=== PATIENT | female | born 1990 | race African-American/Black ===

== ENCOUNTER 2016-03-26 08:18 | Emergency (ER) | payer MEDICAID ==
[2016-03-26] MEDS ORDERED: IPRATROPIUM/ALBUTEROL 0.5-2.5 MG/3 ML AMPUL NEB ONE (09:22)
--- NOTE | 2016-03-26 09:25 | ER Document Report ---
ED General - General Chief Complaint: Flu Symptoms Stated Complaint: COUGH/CONGESTION Time seen by provider: 09:23 Mode of Arrival: Ambulatory Information source: Patient Notes: As is a 26-year-old female who is 26 weeks who presents to the emergency room with productive cough (yellow sputum), sinus congestion, sore throat. Patient states his symptoms of been going on for the last month. Patient denies fever. She does report body aches. Patient has been seen by her OB doctor ([facility]) and she is been treated with amoxicillin and Flonase without any effect. TRAVEL OUTSIDE OF THE [place] IN LAST 30 DAYS: No - HPI Onset: Other - Past month Onset/Duration: Gradual Quality of pain: Achy Severity: None Pain Level: Denies Associated symptoms: Productive cough. denies: Chills, Diarrhea, Fever, Nausea , Vomiting, Shortness of breath Exacerbated by: Denies Relieved by: Denies Similar symptoms previously: Yes Recently seen / treated by doctor: Yes - Related Data Allergies/Adverse Reactions: nitrofurantoin [From Macrobid] Allergy (Mild, Verified 03/26/16 08:28) Hives nitrofurantoin macrocrystalline [From Macrobid] Allergy (Mild, Verified 08:28) Hives Past Medical History - General Information source: Patient - Social History Smoking Status: Never Smoker Cigarette use (# per day): No Chew tobacco use (# tins/day): No Smoking Education Provided: No Frequency of alcohol use: None Drug Abuse: None Lives with: Family Family History: DM, Hypertension, Other - Sister has a history of fibroids that required hysterectomy Patient has suicidal ideation: No Patient has homicidal ideation: No - Medical History Medical History: Negative Renal/ Medical History: Reports: Hx Ovarian Cysts. Denies: Hx Peritoneal Dialysis Psychiatric Medical History: Reports: Hx Bipolar Disorder, Hx Depression, Hx Post Traumatic Stress Disorder Surgical Hx: Negative - Immunizations Immunizations up to date: Yes Hx Diphtheria, Pertussis, Tetanus Vaccination: Yes Review of Systems - Review of Systems Constitutional: denies: Chills, Fever EENT: See HPI Cardiovascular: No symptoms reported Respiratory: No symptoms reported Gastrointestinal: No symptoms reported Genitourinary: No symptoms reported Female Genitourinary: No symptoms reported Musculoskeletal: No symptoms reported Skin: No symptoms reported Hematologic/Lymphatic: No symptoms reported Neurological/Psychological: No symptoms reported Physical Exam - Vital signs Vitals: Temp Pulse Resp BP Pulse Ox 97.6 F 108 H 18 110/66 99 03/26/16 08:24 03/26/16 08:24 03/26/16 08:24 03/26/16 08:24 03/26/16 08:24 Notes: Physical exam: GENERAL: 26-year-old female, alert and oriented 3, no acute distress. HEAD: Atraumatic, normocephalic. EYES: Pupils equal round and reactive to light, extraocular movements intact, sclera anicteric, conjunctiva are normal. ENT: TMs normal, maxillary sinus congestion, nares patent, oropharynx mildly erythematous without exudates. Moist mucous membranes. NECK: Normal range of motion, supple without lymphadenopathy or JVD. LUNGS: Scant wheezes bilaterally HEART: Regular rate and rhythm without murmurs, rubs or gallops. ABDOMEN: Soft, nontender, normoactive bowel sounds. No guarding, no rebound. No masses appreciated. EXTREMITIES: Normal range of motion, no pitting or edema. No clubbing or cyanosis. NEUROLOGICAL: Cranial nerves II through XII grossly intact. Normal speech, normal gait. PSYCH: Normal mood, normal affect. SKIN: Warm, Dry, normal turgor, no rashes or lesions noted. Course - Re-evaluation Re-evalutation: 03/26/16 11:58 Patient states that the coughing is improved after nebulizer and repeat lung exam does appear to have better airway excursion. I will send her home with an albuterol inhaler as well as a Medrol Dosepak and saline nasal spray. 03/26/16 11:58 - Vital Signs Vital signs: Temp Pulse Resp BP Pulse Ox 97.6 F 108 H 18 110/66 99 03/26/16 08:24 03/26/16 08:24 03/26/16 08:24 03/26/16 08:24 03/26/16 08:24 Discharge - Discharge Clinical Impression: acute viral syndrome, bronchitis with bronchospasm Condition: Stable Disposition: HOME, SELF-CARE Instructions: Acetaminophen Additional Instructions: Recommendations: Your symptoms are consistent with a viral syndrome. The cough and congestion will eventually get better. There is no indication for antibiotics at this time. Rest, drink plenty of fluids, avoid any [id number] preparations that we' ll try out your mucous membranes (avoid Benadryl). Try simply saline (this is a saline nasal spray): 2 sprays both nostrils several times a day. Follow-up with your OB doctor. Return to the emergency room for fever (temperature greater than 100.5), shortness of breath, chest pain, not tolerating fluids or any concerns he getting worse. Prescriptions: Methylprednisolone [Medrol 4 mg Dosepack 21 Tab/Pack] 4 mg PO ASDIR PRN #21 tab.ds.pk PRN Reason: Forms: Return to School Referrals: TRENT LANDA MD [Primary Care Provider] - Follow up as needed
[2016-03-26] MEDS ORDERED: ALBUTEROL SULFATE HFA (90 MCG/PUFF) 8 GM MDI (1 MDI/ER DISP) IH PRN (11:59)
[2016-03-26 12:10] VITALS: BP 111/71
== END 2016-03-26 12:08 | disposition home or self-care (01) ==
LOC: ER 08:18
DX: B34.9 Viral infection, unspecified (principal); J40 Bronchitis, not specified as acute or chronic; J98.01 Acute bronchospasm; R05 Cough; R09.81 Nasal congestion; J02.9 Acute pharyngitis, unspecified; R52 Pain, unspecified
CPT/HCPCS: 94640; 99283; 87070; 87880; 87804; J3490; J7620

== ENCOUNTER 2016-04-23 14:12 | Emergency (ER) | payer MEDICAID ==
--- NOTE | 2016-04-23 14:33 | ER Document Report ---
ED Medical Screen (RME) - General Stated Complaint: VOMITING Notes: 26 y/o female 30 weeks onset 4 days ago. fever, chills, cough, vomiting from coughing, and orange urine. fevers 101.4--last dose of apap at 12noon denies pyuria, dysuria I have greeted and performed a rapid initial assessment of this patient. A comprehensive ED assessment and evaluation of the patient, analysis of test results and completion of the medical decision making process will be conducted by additional ED providers. TRAVEL OUTSIDE OF THE [place] IN LAST 30 DAYS: No - Related Data Allergies/Adverse Reactions: nitrofurantoin [From Macrobid] Allergy (Mild, Verified 03/26/16 08:28) Hives nitrofurantoin macrocrystalline [From Macrobid] Allergy (Mild, Verified 08:28) Hives Past Medical History Renal/ Medical History: Reports: Hx Ovarian Cysts. Denies: Hx Peritoneal Dialysis Psychiatric Medical History: Reports: Hx Bipolar Disorder, Hx Depression, Hx Post Traumatic Stress Disorder - Immunizations Immunizations up to date: Yes Hx Diphtheria, Pertussis, Tetanus Vaccination: Yes Physical Exam - Vital signs Vitals: Temp Pulse Resp BP Pulse Ox 98.1 F 118 H 20 125/71 98 04/23/16 14:17 04/23/16 14:17 04/23/16 14:04/23/16 14:17 04/23/16 14:17 Course - Vital Signs Vital signs: Temp Pulse Resp BP Pulse Ox 98.1 F 118 H 20 125/71 98 04/23/16 14:17 04/23/16 14:17 04/23/16 14:04/23/16 14:17 04/23/16 14:17
[2016-04-23 15:03] LABS: APPEARANCE,URINE SLIGHTLY-CLOUDY; BILIRUBIN,URINE NEGATIVE (NEGATIVE); GLUCOSE, URINE NEGATIVE (NEGATIVE); KETONES,URINE 80 mg/dL (NEGATIVE); LEUKOCYTE ESTERASE,URINE TRACE (NEGATIVE); NITRITE,URINE NEGATIVE (NEGATIVE); PROTEIN,URINE 100 mg/dL (NEGATIVE); URINE SPECIFIC GRAVITY 1.036
--- NOTE | 2016-04-23 15:51 | ER Document Report ---
ED Flu Like - General Chief Complaint: Flu Symptoms Stated Complaint: VOMITING Time seen by provider: 15:46 Mode of Arrival: Ambulatory Information source: Patient TRAVEL OUTSIDE OF THE [place] IN LAST 30 DAYS: No - HPI Onset: Other - pt. with 2-3 day h/o cough (mostly non-productive), orange/red urine, congestion, fever, and vomiting times 2-3. Fever to 101 - Related Data Allergies/Adverse Reactions: nitrofurantoin [From Macrobid] Allergy (Mild, Verified 03/26/16 08:28) Hives nitrofurantoin macrocrystalline [From Macrobid] Allergy (Mild, Verified 08:28) Hives Past Medical History - General Information source: Patient - Social History Smoking Status: Never Smoker Cigarette use (# per day): No Chew tobacco use (# tins/day): No Smoking Education Provided: No Family History: DM, Hypertension, Other - Sister has a history of fibroids that required hysterectomy Patient has suicidal ideation: No Patient has homicidal ideation: No Renal/ Medical History: Reports: Hx Ovarian Cysts. Denies: Hx Peritoneal Dialysis Psychiatric Medical History: Reports: Hx Bipolar Disorder, Hx Depression, Hx Post Traumatic Stress Disorder Surgical Hx: Negative - Immunizations Immunizations up to date: Yes Hx Diphtheria, Pertussis, Tetanus Vaccination: Yes Review of Systems - Review of Systems Constitutional: See HPI, Fever EENT: Nose congestion Cardiovascular: No symptoms reported Respiratory: See HPI, Cough Gastrointestinal: See HPI, Vomiting -: Yes All other systems reviewed and negative Physical Exam - Vital signs Vitals: Temp Pulse Resp BP Pulse Ox 98.1 F 118 H 20 125/71 98 04/23/16 14:17 04/23/16 14:17 04/23/16 14:17 04/23/16 14:17 04/23/16 14:17 - General General appearance: Appears well In distress: None - HEENT Head: Normocephalic Mouth/Lips: Normal Mucous membranes: Normal Pharynx: Erythema. No: Exudate Neck: Normal - Respiratory Respiratory status: No respiratory distress Breath sounds: Normal - Cardiovascular Rhythm: Regular, Tachycardia Heart sounds: Normal auscultation - Abdominal Inspection: Normal Distension: No distension Bowel sounds: Normal Tenderness: Nontender Organomegaly: No organomegaly Course - Vital Signs Vital signs: Temp Pulse Resp BP Pulse Ox 98.1 F 118 H 20 125/71 98 04/23/16 14:17 04/23/16 14:17 04/23/16 14:17 04/23/16 14:17 04/23/16 14:17 - Laboratory Laboratory results interpreted by me: 04/23/16 14:40 Urine Protein 100 H Urine Ketones 80 H Urine Urobilinogen 4.0 H Ur Leukocyte Esterase TRACE H Urine Ascorbic Acid 40 H Discharge - Discharge Clinical Impression: Bronchitis, Pyuria Condition: Stable Disposition: HOME, SELF-CARE Instructions: Acetaminophen Additional Instructions: rest, take meds as prescribed, return if worse Referrals: JOAN GIRON MD [ACTIVE STAFF] - Follow up as needed
[2016-04-23 15:59] VITALS: BP 120/71
== END 2016-04-23 15:59 | disposition home or self-care (01) ==
LOC: ER 14:12
DX: J40 Bronchitis, not specified as acute or chronic (principal); N39.0 Urinary tract infection, site not specified; R05 Cough; R50.9 Fever, unspecified; R11.10 Vomiting, unspecified; R09.81 Nasal congestion; R00.0 Tachycardia, unspecified; Z88.1 Allergy status to other antibiotic agents
CPT/HCPCS: 81001; 87804; 94640; 99284

== ENCOUNTER 2016-05-31 21:20 | Outpatient (CLI) | payer MEDICAID ==
[2016-05-31 22:17] LABS: APPEARANCE,URINE SLIGHTLY-CLOUDY; BILIRUBIN,URINE NEGATIVE (NEGATIVE); GLUCOSE, URINE NEGATIVE (NEGATIVE); KETONES,URINE 80 mg/dL (NEGATIVE); LEUKOCYTE ESTERASE,URINE TRACE (NEGATIVE); NITRITE,URINE NEGATIVE (NEGATIVE); PROTEIN,URINE 30 mg/dL (NEGATIVE); URINE SPECIFIC GRAVITY 1.014; UROBILINOGEN,URINE NEGATIVE mg/dL (<2.0)
[2016-05-31 22:18] LABS: AMNISURE (ROM) NEGATIVE (NEGATIVE)
[2016-05-31 22:33] LABS: URINE BARBITURATES SCREEN NEGATIVE; URINE METHADONE SCREEN NEGATIVE; URINE OPIATES LOW NEGATIVE; URINE PHENCYCLIDINE SCREEN NEGATIVE
--- NOTE | 2016-05-31 23:13 | Non Stress Test Report ---
Non Stress Test Datetime Report Generated by CPN: 05/31/2016 23:13 DEMOGRAPHIC Test Number: 1 EGA NST: 35.3 INDICATION Indication for Study: Ordered by Provider MONITORING Monitor Explained: Monitor Explained; Test Explained; Patient Verbalized Understanding Time on Monitor: 05/31/2016 21:54 Time off Monitor: 05/31/2016 22:57 NST Duration: 63 NST INTERVENTIONS NST Interventions: PO Hydration Physician Notified NST: Dr. Mendez BABY A: [id number] BABY A Movement : Present Contraction Frequency : 2-9 FHR Baseline : 150 Accelerations : 15X15 Decelerations : None Variability : Moderate 6-25bpm NST Review: Meets Criteria for Reactive NST NST Review and Verified By : Beatrice KELLY NST Results: Reactive BABY B Movement: Present FHR Baseline: 140 Accelerations: 15X15 Decelerations: None Variability: Moderate 6-25bpm NST Review: Meets Criteria for Reactive NST NST Reviewed And Verified By: O Ledgerwood RN NST Results: Reactive NST REPORT Report Trigger: Send Report
== END 2016-05-31 23:04 | disposition home or self-care (01) ==
LOC: LC 21:20
PROVIDERS: ATTEND Obstetrics & Gynecology
PROC: 4A1HXCZ Monitoring of Products of Conception, Cardiac Rate, External Approach (ICD-10-PCS; principal; 2016-05-31)
DX: O47.03 False labor before 37 completed weeks of gestation, third trimester (principal); Z3A.35 35 weeks gestation of pregnancy
CPT/HCPCS: 59025; 80307; 81001; 84112

== ENCOUNTER 2016-11-28 08:36 | Emergency (ER) | payer SELFPAY ==
[2016-11-28] MEDS ORDERED: BUPIVACAINE HCL 0.5 % INJ/PF 30 ML SDV INJ ONE (09:25)
--- NOTE | 2016-11-28 09:51 | ER Document Report ---
ED General - General Chief Complaint: Toothache Stated Complaint: TOOTHACHE Time Seen by Provider: 11/28/16 08:44 Mode of Arrival: Ambulatory Information source: Patient Notes: 26-year-old female presents with complaints of dental pain of over 2-3 month duration. Patient notes she was supposed to initially have a root canal done in the bridge but could not afford it, patient was supposed to have the tooth pulled however the pain started to worsen denies any fevers or chills denies any bad taste in her mouth TRAVEL OUTSIDE OF THE [place] IN LAST 30 DAYS: No - HPI Onset: Other Onset/Duration: Persistent Quality of pain: Achy Severity: Mild Pain Level: 1 Associated symptoms: Other Exacerbated by: Food Relieved by: Denies Similar symptoms previously: Yes Recently seen / treated by doctor: Yes - Related Data Allergies/Adverse Reactions: nitrofurantoin [From Macrobid] Allergy (Mild, Verified 05/31/16 21:46) Hives nitrofurantoin macrocrystalline [From Macrobid] Allergy (Mild, Verified 21:46) Hives Past Medical History - Social History Smoking Status: Never Smoker Cigarette use (# per day): No Chew tobacco use (# tins/day): No Smoking Education Provided: No Frequency of alcohol use: None Drug Abuse: None Family History: DM, Hypertension, Other - Sister has a history of fibroids that required hysterectomy Patient has suicidal ideation: No Patient has homicidal ideation: No Renal/ Medical History: Reports: Hx Ovarian Cysts. Denies: Hx Peritoneal Dialysis Psychiatric Medical History: Reports: Hx Bipolar Disorder, Hx Depression, Hx Post Traumatic Stress Disorder - Immunizations Immunizations up to date: Yes Hx Diphtheria, Pertussis, Tetanus Vaccination: Yes Review of Systems - Review of Systems Notes: REVIEW OF SYSTEMS: CONSTITUTIONAL : Denies fever, chills, or sweats. Denies recent illness. EENT: Dental pain CARDIOVASCULAR: Denies chest pain. Denies palpitations or racing or irregular heart beat. Denies ankle edema. RESPIRATORY: Denies cough, cold, or chest congestion. Denies shortness of breath, difficulty breathing, or wheezing. GASTROINTESTINAL: Denies abdominal pain or distention. Denies nausea, vomiting , or diarrhea. Denies blood in vomitus, stools, or per rectum. Denies black, tarry stools. Denies constipation. GENITOURINARY: Denies difficulty urinating, painful urination, burning, frequency, blood in urine, or discharge. FEMALE GENITOURINARY: Denies vaginal bleeding, heavy or abnormal periods, irregular periods. Denies vaginal discharge or odor. MUSCULOSKELETAL: Denies back or neck pain or stiffness. Denies joint pain or swelling. SKIN: Denies rash, lesions or sores. HEMATOLOGIC : Denies easy bruising or bleeding. LYMPHATIC: Denies swollen, enlarged glands. NEUROLOGICAL: Denies confusion or altered mental status. Denies passing out or loss of consciousness. Denies dizziness or lightheadedness. Denies headache. Denies weakness or paralysis or loss of use of either side. Denies problems with gait or speech. Denies sensory loss, numbness, or tingling. Denies seizures. PSYCHIATRIC: Denies anxiety or stress. Denies depression, suicidal ideation, or homicidal ideation. ALL OTHER SYSTEMS REVIEWED AND NEGATIVE. PHYSICAL EXAMINATION: GENERAL: Well-appearing, well-nourished and in no acute distress. HEAD: Atraumatic, normocephalic. EYES: Pupils equal round and reactive to light, extraocular movements intact, conjunctiva are normal. ENT: Tooth #29 is tender to palpation no abscess noted no fracture NECK: Normal range of motion, supple without lymphadenopathy LUNGS: Breath sounds clear to auscultation bilaterally and equal. No wheezes rales or rhonchi. HEART: Regular rate and rhythm without murmurs ABDOMEN: Soft, nontender, nondistended abdomen. No guarding, no rebound. No masses appreciated. Female : deferred Musculoskeletal: Normal range of motion, no pitting or edema. No cyanosis. NEUROLOGICAL: Cranial nerves grossly intact. Normal speech, normal gait. Normal sensory, motor exams PSYCH: Normal mood, normal affect. SKIN: Warm, Dry, normal turgor, no rashes or lesions noted. Dictation was performed using [employer] voice recognition software Physical Exam - Vital signs Vitals: Temp Pulse Resp BP Pulse Ox 99 F 82 16 147/101 H 99 11/28/16 08:37 11/28/16 08:37 11/28/16 08:37 11/28/16 08:37 11/28/16 08:37 Course - Re-evaluation Re-evalutation: 11/28/16 10:49 Inferior alveolar nerve block was performed with no complication complete resolution of symptoms. Patient will be started on antibiotics and pain control and already has follow with her own dentist After performing a Medical Screening Examination, I estimate there is LOW risk for a DEEP SPACE INFECTION (e.g., PETER'S ANGINA OR RETROPHARYNGEAL ABSCESS), MENINGITIS, INTRACRANIAL HEMORRHAGE, or AIRWAY COMPROMISE, thus I consider the discharge disposition reasonable. Also, there is no evidence or peritonitis, sepsis, or toxicity. I have reevaluated this patient multiple times and no significant life threatening changes are noted. The patient and I have discussed the diagnosis and risks, and we agree with discharging home with close follow-up with the understanding that symptoms and presentations can change. We also discussed returning to the Emergency Department immediately if new or worsening symptoms occur. We have discussed the symptoms which are most concerning (e.g., changing or worsening pain, trouble swallowing or breathing, neck stiffness or fever) that necessitate immediate return. - Vital Signs Vital signs: Temp Pulse Resp BP Pulse Ox 98.5 F 67 15 142/95 H 99 11/28/16 09:57 11/28/16 09:57 11/28/16 09:57 11/28/16 09:57 11/28/16 09:57 Procedures - Additional Procedures Inferior alveolar nerve block on the right Time performed: 07:50 - Using 10 cc of 0.5% Sensorcaine with no epinephrine complete resolution of symptoms no complication Discharge - Discharge Clinical Impression: Dental infection, Pain, dental Condition: Stable Disposition: HOME, SELF-CARE Additional Instructions: Please follow-up with your dentist for further care return immediately if there is any worsening symptoms Prescriptions: Hydrocodone/Acetaminophen [Canyon 5-325 mg Tablet] 1 tab PO Q6 #10 tablet Penicillin V Potassium 500 mg PO Q6 #40 tablet Referrals: SELINA WILLS MD [Primary Care Provider] - Follow up as needed
[2016-11-28 10:04] VITALS: BP 142/95
== END 2016-11-28 10:03 | disposition home or self-care (01) ==
LOC: ER 08:36
PROC: 3E0T3BZ Introduction of Anesthetic Agent into Peripheral Nerves and Plexi, Percutaneous Approach (ICD-10-PCS; principal; 2016-11-28)
DX: K08.89 Other specified disorders of teeth and supporting structures (principal); K04.7 Periapical abscess without sinus
CPT/HCPCS: 99282

== ENCOUNTER 2016-12-06 01:47 | Emergency (ER) | payer SELFPAY ==
[2016-12-06] MEDS ORDERED: CLINDAMYCIN HCL 150 MG CAPSULE PO ONE (03:17)
--- NOTE | 2016-12-06 03:21 | ER Document Report ---
HPI - HPI Patient complains to provider of: Right lower tooth pain Pain Level: 5 Context: Patient is a 26-year-old female that comes emergency department for chief complaint of right lower tooth pain and sensation of jaw swelling. She is on penicillin, she was evaluated here 8 days ago and was on penicillin and given hydrocodone, she states she was seen the next day by a dentist but they gave her a high mckeon quote or either extraction or root canal, she states she cannot afford it. She denies fever, sore throat, neck pain. - CARDIOVASCULAR Cardiovascular: DENIES: Chest pain - REPRODUCTIVE Reproductive: REPORTS: : - DERM Skin Color: Normal Past Medical History - General Information source: Patient - Social History Smoking Status: Never Smoker Chew tobacco use (# tins/day): No Frequency of alcohol use: None Drug Abuse: None Lives with: Family Family History: DM, Hypertension, Other - Sister has a history of fibroids that required hysterectomy Patient has suicidal ideation: No Patient has homicidal ideation: No Renal/ Medical History: Reports: Hx Ovarian Cysts. Denies: Hx Peritoneal Dialysis Psychiatric Medical History: Reports: Hx Bipolar Disorder, Hx Depression, Hx Post Traumatic Stress Disorder - Immunizations Immunizations up to date: Yes Hx Diphtheria, Pertussis, Tetanus Vaccination: Yes Vertical Provider Document - CONSTITUTIONAL General Appearance: WD/WN, No Apparent Distress - INFECTION CONTROL TRAVEL OUTSIDE OF THE [place] IN LAST 30 DAYS: No - HEENT HEENT: Atraumatic, Normocephalic. negative: Normal ENT Exam Mouth Diagram: 1 - Dental caries, no evidence of abscess in the mouth - NECK Neck: Normal Inspection - RESPIRATORY Respiratory: Breath Sounds Normal, No Respiratory Distress O2 Sat by Pulse Oximetry: 98 - CARDIOVASCULAR Cardiovascular: Regular Rate, Regular Rhythm - GI/ABDOMEN Gastrointestinal: Abdomen Soft, Abdomen Non-Tender - BACK Back: Normal Inspection - MUSCULOSKELETAL/EXTREMETIES Musculoskeletal/Extremeties: MAEW, FROM, Non-Tender - NEURO Level of Consciousness: Awake, Alert, Appropriate Motor/Sensory: No Motor Deficit, No Sensory Deficit Course - Re-evaluation Re-evalutation: Patient states she still has leftover hydrocodone from last time because she does not like taking it. She declines a dental block as well because she states it did not work. Patient will be placed on clindamycin and instructed to stop taking penicillin, referred to dental clinic locally because of difficulty with payment, discussed return precautions, patient states understanding and agreement. - Vital Signs Vital signs: Temp Pulse Resp BP Pulse Ox 90 16 145/90 H 98 12/06/16 01:52 12/06/16 01:52 12/06/16 01:52 12/06/16 01:52 Discharge - Discharge Clinical Impression: Pain, dental Condition: Stable Disposition: HOME, SELF-CARE Additional Instructions: Please stop the penicillin, take the clindamycin instead, follow-up with the clinic referral, ask for the community dental clinic when you call. Return to the emergency department for any concerning or worsening symptoms including swelling of the face, fever, difficulty swallowing, etc. Prescriptions: Clindamycin HCl [Cleocin 150 mg Capsule] 150 mg PO Q6 #56 capsule Fluconazole [Diflucan] 150 mg PO ONCE PRN #1 tablet PRN Reason: Referrals: [facility] [Provider Group] - Follow up as needed [facility] [Provider Group] - Follow up as needed
[2016-12-06 03:57] VITALS: BP 136/78
== END 2016-12-06 03:58 | disposition home or self-care (01) ==
LOC: ER 01:47
DX: K08.9 Disorder of teeth and supporting structures, unspecified (principal)
CPT/HCPCS: 99282

== ENCOUNTER 2017-01-27 13:45 | Emergency (ER) | payer MEDICAID ==
[2017-01-27 14:10] VITALS: BP 125/81
--- NOTE | 2017-01-27 15:33 | ER Document Report ---
ED Foreign Body - General Chief Complaint: Foreign Body in Ear Stated Complaint: POSSIBLE FOREIGN OBJECT IN EAR Time Seen by Provider: 01/27/17 14:47 Mode of Arrival: Ambulatory Information source: Patient Notes: 27-year-old female presents to ED for a bug in her left ear. She states it is been flying and buzzing and making noises making it hard for her to sleep. She states she thinks she pulled the leg of the bug out the other day. TRAVEL OUTSIDE OF THE [place] IN LAST 30 DAYS: No - HPI Location of foreign body: Other - Left ear Onset: Other - States she has felt it for couple days Onset/Duration: Intermittent Quality of pain: Achy Severity: Moderate Pain Level: 3 Associated symptoms: None Exacerbated by: Denies Relieved by: Denies Similar symptoms previously: Yes Recently seen / treated by doctor: No - Related Data Allergies/Adverse Reactions: nitrofurantoin [From Macrobid] Allergy (Mild, Verified 01/27/17 14:11) Hives nitrofurantoin macrocrystalline [From Macrobid] Allergy (Mild, Verified 14:11) Hives Home Medications: Current Home Medications No Home Medications 01/27/17 [History] Past Medical History - General Information source: Patient - Social History Smoking Status: Never Smoker Cigarette use (# per day): No Chew tobacco use (# tins/day): No Smoking Education Provided: No Frequency of alcohol use: None Drug Abuse: None Lives with: Family Family History: DM, Hypertension, Other - Sister has a history of fibroids that required hysterectomy Patient has suicidal ideation: No Patient has homicidal ideation: No - Past Medical History Cardiac Medical History: Reports: None Pulmonary Medical History: Reports: None EENT Medical History: Reports: None Neurological Medical History: Reports: None Endocrine Medical History: Reports: None Renal/ Medical History: Reports: Hx Ovarian Cysts Malignancy Medical History: Reports: None GI Medical History: Reports: None Musculoskeltal Medical History: Reports None Skin Medical History: Reports None Psychiatric Medical History: Reports: Hx Bipolar Disorder, Hx Depression, Hx Post Traumatic Stress Disorder Traumatic Medical History: Reports: None Infectious Medical History: Reports: None Surgical Hx: Negative Past Surgical History: Reports: None - Immunizations Immunizations up to date: Yes Hx Diphtheria, Pertussis, Tetanus Vaccination: Yes Review of Systems - Review of Systems Constitutional: No symptoms reported EENT: Other - Something flying around in her ear Cardiovascular: No symptoms reported Respiratory: No symptoms reported Gastrointestinal: No symptoms reported Genitourinary: No symptoms reported Female Genitourinary: No symptoms reported Musculoskeletal: No symptoms reported Skin: No symptoms reported Hematologic/Lymphatic: No symptoms reported Neurological/Psychological: No symptoms reported -: Yes All other systems reviewed and negative Physical Exam - Vital signs Vitals: Temp Pulse Resp BP Pulse Ox 98.6 F 91 16 125/81 99 01/27/17 14:03 01/27/17 14:03 01/27/17 14:03 01/27/17 14:03 01/27/17 14:03 Interpretation: Normal - General General appearance: Appears well, Alert - HEENT Head: Normocephalic, Atraumatic Eyes: Normal Pupils: PERRL Ears: Normal External canal: Foreign body - Small nap flying around in her ear needed to be captured and then killed removed Tympanic membrane: Normal Sinus: Normal Nasal: Normal Mouth/Lips: Normal Mucous membranes: Normal Pharynx: Normal, Other - Respiratory Respiratory status: No respiratory distress Chest status: Nontender Breath sounds: Normal Chest palpation: Normal - Cardiovascular Rhythm: Regular Heart sounds: Normal auscultation Murmur: No - Abdominal Inspection: Normal Distension: No distension Bowel sounds: Normal Tenderness: Nontender Organomegaly: No organomegaly - Back Back: Normal, Nontender - Extremities General upper extremity: Normal inspection, Nontender, Normal color, Normal ROM , Normal temperature General lower extremity: Normal inspection, Nontender, Normal color, Normal ROM , Normal temperature, Normal weight bearing. No: Tere's sign - Neurological Neuro grossly intact: Yes Cognition: Normal Orientation: AAOx4 Williams Coma Scale Eye Opening: Spontaneous Williams Coma Scale Verbal: Oriented [place] Coma Scale Motor: Obeys Commands Williams Coma Scale Total: 15 Speech: Normal Motor strength normal: LUE, RUE, LLE, RLE Sensory: Normal - Psychological Associated symptoms: Normal affect, Normal mood - Skin Skin Temperature: Warm Skin Moisture: Dry Skin Color: Normal Course - Re-evaluation Re-evalutation: 01/27/17 15:35 Patient tolerated well removal of bug from her left ear. - Vital Signs Vital signs: Temp Pulse Resp BP Pulse Ox 98.6 F 91 16 125/81 99 01/27/17 14:03 01/27/17 14:03 01/27/17 14:03 01/27/17 14:03 01/27/17 14:03 Discharge - Discharge Clinical Impression: Bug removed from left ear Condition: Stable Disposition: HOME, SELF-CARE Instructions: Family Physicians / Practices Additional Instructions: Foreign Object in the Ear Examination showed a foreign object in the ear. This can cause pain, swelling, infection, and decreased hearing. An ear foreign body should be removed promptly. Usually no further treatment is necessary following removal. If infection is already present, we prescribe antibiotic drops. Sometimes the object damages the eardrum. If hearing is not normal, or if an obvious injury was seen, another checkup is necessary. If there is continued drainage, continued earache, fever, headache, or hearing loss, come back for reexamination. Acetaminophen Acetaminophen may be taken for pain relief or fever control. It's much safer than aspirin, offering a wider range of "safe" dosages. It is safe during . Some brand names are Tylenol, Panadol, Datril, Anacin 3, Tempra, and Liquiprin. Acetaminophen can be repeated every four hours. The following are maximum recommended dosages: WEIGHT Dose Drops Elixir Chewable( 80mg) (LBS.) drprs=droppers tsp=teaspoon 6 40 mg .4 ml (1/2) 6-11 80 mg .8 ml (full) 1/2 tsp 1 tab 12-16 120 mg 1 1/2 drprs 3/4 tsp 1 1/2 tabs 17-23 160 mg 2 drprs 1 tsp 2 tabs 24-30 240 mg 3 drprs 1 1/2 tsp 3 tabs 30-35 320 mg 2 tsp 4 tabs 36-41 360 mg 2 1/4 tsp 4 1 /2 tabs 42-47 400 mg 2 1/2 tsp 5 tabs 48-53 480 mg 3 tsp 6 tabs 54-59 520 mg 3 1/4 tsp 6 1 /2 tabs 60-64 560 mg 3 1/2 tsp 7 tabs 65-70 600 mg 3 3/4 tsp 7 1 /2 tabs 71-76 640 mg 4 tsp 8 tabs 77-82 720 mg 4 1/2 tsp 9 tabs 83-88 800 mg 5 tsp 10 tabs >89 pounds or adults 650 mg to 900 mg Acetaminophen can be repeated every four hours. Maximum daily dose not to exceed 4000 mg. These maximum recommended dosages are slightly higher than the dosages written on the product container, but these dosages are very safe and well below the toxic dosage for acetaminophen. FOLLOW-UP CARE: If you have been referred to a physician for follow-up care, call the physician s office for an appointment as you were instructed or within the next two days. If you experience worsening or a significant change in your symptoms, notify the physician immediately or return to the Emergency Department at any time for re-evaluation.
== END 2017-01-27 15:35 | disposition home or self-care (01) ==
LOC: ER 13:45
DX: T16.2XXA Foreign body in left ear, initial encounter (principal); X58.XXXA Exposure to other specified factors, initial encounter
CPT/HCPCS: 99282